=== PATIENT | female | born 1975 | race Caucasian/White ===

== ENCOUNTER 2018-04-03 15:36 | Outpatient (CLI) | payer BC, SELFPAY ==
[2018-04-03 16:35] LABS: Cholesterol 244 mg/dL (50-200); Glucose 80 mg/dL (70-100); HDL Cholesterol 54 mg/dL (40-60); LDL CHOLESTEROL 157 mg/dL (<100); Triglyceride 139 mg/dL (30-150)
[2018-04-03 19:45] LABS: Hemoglobin A1C 5.2 % (4.5-6.2)
== END 2018-04-03 15:56 ==
PROVIDERS: Visit Provider Obstetrics & Gynecology Gynecology
DX: Z00.00 Encounter for general adult medical examination without abnormal findings (principal); Z13.220 Encounter for screening for lipoid disorders; Z13.1 Encounter for screening for diabetes mellitus
CPT/HCPCS: 36415; 80061; 82947; 83721; 83036

== ENCOUNTER 2018-10-10 09:59 | Day surgery (SDC) | payer BC, SELFPAY ==
[2018-10-10 10:24] VITALS: BP 143/85; PULSE 81; RESP 16; TEMP 36; O2SAT 98
[2018-10-10] MEDS: Lactated Ringers 1,000 ML 80 ML IV ×2 (10:52→12:58)
--- NOTE | 2018-10-10 13:04 | W.PM.DSUDISC ---
Discharge Plan Disposition Patient Disposition: HOME Condition: Good Discharge Details Reason For Visit: SCREENING Attending Provider: Pat Cardoza Home Meds and New Rx's Prescriptions: Continued lorazepam 0.5 mg tablet 0.5 mg PO BID-TID PRN (Reason: anxiety) Qty: 10 RF: 0 sertraline 50 mg tablet 50 mg PO DAILY Qty: 90 RF: 4 sertraline 100 mg tablet 100 mg PO DAILY Qty: 90 RF: 4 Discontinued polyethylene glycol 3350 17 gram/dose powder 238 g PO ONCE Qty: 238 RF: 0 bisacodyl [Dulcolax (bisacodyl)] 5 mg tablet,delayed release (DR/EC) 5 mg PO ONCE Qty: 4 RF: 0 Discharge Instructions Additional Instructions: Findings:Normal repeat in 5 yrs time Follow up: as needed Please call if you develop: fevers >101.5 Nausea or Vomiting Abdominal pain that is not transient DAY SURGERY UNIT POST COLONOSCOPY INSTRUCTIONS 1. Because there will be medication in your system for the next 24 hours, you may feel a little sleepy. Your coordination will be affected. Therefore: a. Do not drive or operate dangerous equipment for 24 hours. b. Do not drink alcohol beverages for 24 hours (not even beer). c. Plan to go home and rest for the day. 2. Generally there are no restrictions on your activity after a day or so has gone by, but you may feel a bit fatigued for a few days. 3 After you arrive home you may have a light meal and return to a normal diet as you can tolerate it without feeling sick to your stomach. 4. After surgery, you may feel pain or discomfort. This should be only transient, but if it persists please contact your doctor. 5. If there are any questions regarding the findings of your procedure, please feel free to contact your doctor. 6. If you are unable to contact your doctor with a problem, contact the hospital at [phone]. 7. Continue all your regular medications unless directed otherwise. I understand the above instructions and have no questions. Signature of Patient or Responsible Adult Escort Date/Time Name of Responsible Adult Escort Signature of Nurse Date/Time Activity:: no strenuous acitivty x 24 Diet:: sm lt meals x 24 hrs Discharge Orders Discharge Orders: Discharge Order (Routine); Ordered 10/10/18 Ordered By: Pat Cardoza DS: Diagnosis Discharge Diagnosis (1) Family history of colon cancer in mother: Status: Chronic
--- NOTE | 2018-10-10 13:06 | W.COLOREPORT ---
Date of service: 10/10/18 Time of Service: 13:06 Colonoscopy Report Date of procedure: 10/10/18 Pre-op diagnosis general: CRC 1 degree relative Post-op diagnosis procedure note: same Procedure: CE Surgeon: Pat Cardoza Anesthesia proc note operative: GETA Estimated blood loss (mL): 0 Pathology: none sent Complications: None Disposition: same day Prep: Miralax/Dulcolax Retraction Time: 10 mins Procedure Description: Informed consent was obtained, explaining the risks and benefits of the procedure, including but not limited to bleeding, infection, perforation, aspiration, complications from the anesthesia. DESCRIPTION OF PROCEDURE: The patient was brought to the endoscopy suite and placed in left lateral decubitus position. Anesthesia was administered per the Department of Anesthesia, with constant monitoring of all vital signs. Digital rectal exam was performed prior to beginning the procedure and revealed no anal or rectal pathology. The previously lubricated Olympus was inserted in the rectum and insufflation was begun. The scope was passed up through the recto-sigmoid valves, through the sigmoid and transverse, down the ascending and the cecum was achieved at 90 cm. Good prep was noted. The scope was then withdrawn. There were no polyps,AVM,s or diverticula noted. The patient tolerated the procedure without complicated and transferred to the recovery room in stable condition. Colonoscopy should be repeated in 5 years time.
[2018-10-10 13:38] VITALS: BP 137/77; PULSE 77; RESP 16; TEMP 37.7; O2SAT 98
== END 2018-10-10 13:40 | disposition home or self-care (01) ==
PROVIDERS: Visit Provider Surgery
PROC: 0DJD8ZZ Inspection of Lower Intestinal Tract, Via Natural or Artificial Opening Endoscopic (ICD-10-PCS; CPT 45378; principal; 2018-10-10 11:15)
DX: Z12.11 Encounter for screening for malignant neoplasm of colon (principal); Z80.0 Family history of malignant neoplasm of digestive organs
CPT/HCPCS: 45378

== ENCOUNTER 2019-08-14 09:03 | Outpatient (REF) | payer BC, SELFPAY ==
--- NOTE | 2019-08-14 08:30 | PAPFT_PTH ---
PATIENT: Ilda Ayers LOC: [facility] U#:[id number] AGE/SX: 44/F ROOM: RE08/14/[address]: BRYAN Newton : 1975 BED: DIS: 08/14/2019 SPEC #: [id number] RECD: 08/14/19 12:48 STATUS: G[facility]ERT REQ #: [id number] YESENIA: 08/14/19 08:[address]: Monica Bowie DEPT: [facility] Cytology RECD BY: Claudia Durant ENTERED: 08/14/19 12:48 SP TYPE: PAPFT CRUZITO DR: Unknown,Unknown Tissues: 1 - CX/ENDOCX FOR PAP SMEARS Procedures: PAP THIN PREP/UVM Screening HPV DNA PROBE Comments: [id number]
== END 2019-08-14 09:23 ==
LOC: LBN 09:03
PROVIDERS: Visit Provider Nurse Practitioner Family
DX: Z12.4 Encounter for screening for malignant neoplasm of cervix (principal); Z11.51 Encounter for screening for human papillomavirus (HPV)
CPT/HCPCS: 88142; 87624

== ENCOUNTER 2021-01-31 04:19 | Outpatient (CLI) | payer BC, SELFPAY ==
[2021-01-31 08:48] LABS: Hemoglobin A1C 5.4 % (<5.7)
[2021-01-31 09:46] LABS: ALT 28 U/L (14-59); AST 16 U/L (15-37); Albumin 3.6 g/dL (3.4-5.0); Alkaline Phosphatase 112 U/L (46-116); Anion Gap 7.6 mmol/L (3-11); BUN 15 mg/dL (7-18); Bilirubin, Total 0.2 mg/dL (0.2-1.0); CO2 27.4 mmol/L (21.0-32.0); CREATININE 0.8 mg/dL (0.55-1.02); Calcium 8.6 mg/dL (8.5-10.1); Calculated LDL 130 mg/dL (<100); Chloride 105 mmol/L (98-107); Cholesterol 206 mg/dL (<200); Glucose 98 mg/dL (74-106); HDL Cholesterol 59 mg/dL (40-60); Potassium 4.5 mmol/L (3.5-5.1); Sodium 140 mmol/L (136-145); Triglyceride 85 mg/dL (<150)
== END 2021-01-31 04:20 | disposition home or self-care (01) ==
LOC: LBO 04:20
PROVIDERS: Visit Provider Obstetrics & Gynecology Gynecology
DX: E78.00 Pure hypercholesterolemia, unspecified (principal); Z68.31 Body mass index [BMI] 31.0-31.9, adult
CPT/HCPCS: 36415; 80053; 80061; 83036

== ENCOUNTER → 2021-04-22 00:39 | Outpatient (CLI) | payer BC, SELFPAY ==
--- NOTE | 2021-04-22 12:30 | DI.MAMMO_ITS ---
Exam(s) MAMMO SCREENING EXAM: MAMMO SCREENING CLINICAL HISTORY: screening TECHNIQUE: Mammograms were interpreted according to the usual protocol including computer analysis w [employer] CAD system, tomosynthesis and C-view imaging. COMPARISON: FINDINGS: The breasts are of moderate density with fairly symmetrical distribution of fibroglandular tissue. N o dominant mass or clumped microcalcification is identified in either breast. No prior studies avail able for comparison. On the CC view of the right breast, there is a vaguely nodular radiodensity projected at the extreme posterior aspect of the breast laterally, additional CC view exaggerated to the lateral portion of th e breast is requested. Additionally there is an area of asymmetric density or nodularity projected in the superior central p ortion right breast on MLO view. Additional evaluation with MLO spot compression view recommended. No other significant findings. IMPRESSION: Additional mammographic views of the right breast are requested as described above. Breast ultrasoun d may be indicated as well depending on the results of the additional mammographic views. BI-RADS Category 0 - Assessment Incomplete: Need additional imaging evaluation Breast Density - Category B - Scattered areas of fibroglandular density
== END ==
PROVIDERS: Visit Provider Obstetrics & Gynecology Gynecology
DX: Z12.31 Encounter for screening mammogram for malignant neoplasm of breast (principal); R92.8 Other abnormal and inconclusive findings on diagnostic imaging of breast
CPT/HCPCS: 77063; 77067

== ENCOUNTER 2021-04-25 09:58 | Outpatient (CLI) | payer BC, SELFPAY ==
--- NOTE | 2021-04-25 | DI.US_ITS ---
Exam(s) MG MAMMO SCREEN CALL BACK UNI US BREAST RT COMPLETE EXAM: MG MAMMO SCREEN CALL BACK UNI -RIGHT AND COMPLETE RIGHT BREAST ULTRASOUND CLINICAL HISTORY: F/U MAMMO, CC SHOWS NODULAR RADIODENSITY,MLO SHOWS ASYMETRIC DENSITY. TECHNIQUE: Unilateral spot mammographic images obtained with 3D tomosynthesisand utilizing computer aided detection (CAD). DIFFICULT VIEWS OBTAINED were spot compression MLO, exaggerated CC, and straig ht lateral view.. Complete right breast Ultrasound was also performed, including all 4 quadrants, the retroareolar makrel on, and the ipsilateral axilla. COMPARISON: Prior mammograms were reviewed. This additional imaging was performed due to findings described on the recent baseline screening mammogram of 04/22/2021. FINDINGS: Additional mammographic views performed todayrenders the area posteriorly less concerning. The more anterior area is equivocal. Therefore proceeded with ultrasound. Ultrasound performed today reveals no evidence of solid or significant cystic lesions in all 4 quadra nts nor in the retroareolar region. Scanning of the right axilla reveals no significant adenopathy. IMPRESSION: 1. No mammographic evidence of malignancy in the right breast. Negative complete right breast ultras ound Appropriate follow-up is repeat right breast MAMMOGRAM in 6 months, with earlier imaging if a self d etected breast change is noted. The patient was informed of these findings and recommendations prior to leaving the department today. BI-RADS Category 3 - 6 month - Probably Benign Finding: Recommend follow-up mammography in 6 months Breast Density - Category B - Scattered areas of fibroglandular density Breast density Category C or D implies that the patient has dense breast tissue. Dense breast tissue can make it harder to find cancer on a mammogram. Dense breast tissue is also associated with an incr eased risk of breast cancer. This information about the result of the mammogram report was provided to the patient to raise their awareness. Use this report when you speak with the patient about their risks for breast cancer, which includes their family history. At that time, you may recommend additional screening tests (Ultrasoun d or MRI) as these tests may add significant information. A negative radiographic report should not delay biopsy if a dominant or clinically suspicious mass is present. Up to ten percent of cancers are not identified on mammography. A negative report may reinforce clinical impression. Adenosis and dense breasts may obscure an underlying neoplasm. False positive reports average 6 to 10%. Patient will receive a letter notifying them of these results.
== END 2021-04-25 10:18 ==
LOC: DI 09:58
PROVIDERS: Visit Provider Obstetrics & Gynecology Gynecology
DX: Z12.31 Encounter for screening mammogram for malignant neoplasm of breast (principal); R92.8 Other abnormal and inconclusive findings on diagnostic imaging of breast; N64.59 Other signs and symptoms in breast
CPT/HCPCS: 76642; 77063; 77067

== ENCOUNTER 2021-10-27 03:19 | Outpatient (CLI) | payer BC, SELFPAY ==
--- NOTE | 2021-10-27 07:45 | DI.MAMMO_ITS ---
Exam(s) MG MAMMO DIAGNOSTIC UNI EXAM: MG MAMMO DIAGNOSTIC UNI CLINICAL HISTORY: 3 mo f/u, f/u inconclusive mammo, r92.2 TECHNIQUE: Right cc and MLO mammogram images were performed according to the usual protocol includ ing computer analysis with CAD system, tomosynthesis and C-view imaging. COMPARISON: MG MG MAMMO SCREENING from 04/22/2021 MG MG MAMMO SCREEN CALL BACK UNI from 04/25/2021 US US BREAST RT COMPLETE from 04/25/2021 FINDINGS: The right breast is composed of scattered fibroglandular densities, Breast Density category B. No suspicious masses or suspicious microcalcifications are seen. The previously questioned areas o f asymmetric density in the superior and lateral posterior aspects of the right breast are less promi nent. No new findings are seen. No skin thickening or abnormal axillary lymph nodes are seen. IMPRESSION: BI-RADS Category 1, Negative mammogram Resume screening mammography recommended. Breast Density - Category B, scattered fibroglandular densities. A negative radiographic report should not delay biopsy if a dominant or clinically suspicious mass is present. Up to ten percent of cancers are not identified on mammography. A negative report may reinforce clinical impression. Adenosis and dense breasts may obscure an underlying neoplasm. False positive reports average 6 to 10%. Patient will receive a letter notifying them of these results.
== END 2021-10-27 03:39 ==
LOC: DI 03:20
PROVIDERS: Visit Provider Obstetrics & Gynecology Gynecology
DX: R92.2 Inconclusive mammogram (principal)
CPT/HCPCS: 77061; 77065; G0279

== ENCOUNTER 2022-03-02 02:25 | Outpatient (CLI) | payer BC, SELFPAY ==
[2022-03-02 10:05] LABS: ALT 27 U/L (14-59); AST 21 U/L (15-37); Alkaline Phosphatase 99 U/L (46-116); Anion Gap 7.8 mmol/L (3-11); BUN 14 mg/dL (7-18); Bilirubin, Total 0.3 mg/dL (0.2-1.0); CO2 29.2 mmol/L (21.0-32.0); CREATININE 0.9 mg/dL (0.55-1.02); Calcium 9.3 mg/dL (8.5-10.1); Chloride 103 mmol/L (98-107); Estimated GFR 79.85 (mL/min/1.73m2); Glucose 94 mg/dL (74-106); Potassium 4.3 mmol/L (3.5-5.1); Sodium 140 mmol/L (136-145); Total Protein 7.7 g/dL (6.4-8.2)
[2022-03-02 10:06] LABS: Cholesterol 220 mg/dL (<200); HDL Cholesterol 70 mg/dL (40-60); LDL CHOLESTEROL 129 mg/dL (<100)
== END 2022-03-02 02:26 | disposition home or self-care (01) ==
LOC: LBO 02:25
PROVIDERS: Visit Provider Obstetrics & Gynecology
DX: Z00.00 Encounter for general adult medical examination without abnormal findings (principal); E78.5 Hyperlipidemia, unspecified
CPT/HCPCS: 36415; 80053; 83721; 82465; 83718

== ENCOUNTER 2023-07-23 11:02 | Outpatient (CLI) | payer BC, SELFPAY ==
[2023-07-23 12:20] LABS: Abs Immature Grans 0.01 10^3/uL (0.0-0.06); Absolute Basophil Count 0.04 10^3/uL (0.0-0.2); Absolute Eosinophil Count 0.12 10^3/uL (0.0-0.7); Absolute Lymphocyte Count 2.45 10^3/uL (1.2-3.4); Absolute Monocyte Count 0.67 10^3/uL (0.1-0.8); Basophils % 0.7 %; HCT 40.4 % (36.0-46.0); Immature Grans % 0.2 %; Lymphocytes % 41.6 %; MCH 29.1 pg (27.0-33.0); MCHC 32.2 % (32.0-36.0); MCV 90 fL (80-95); MPV 10.6 fL (8.0-11.0); Monocytes % 11.4 %; Neutrophils % 44.1 %; Platelet Count 280 10^3/uL (130-400); RBC 4.47 10^6/uL (3.93-5.22); RDW 12.3 % (11.7-14.6); RDW-SD 40.2 fL; WBC 5.89 10^3/uL (4.4-10.8)
== END 2023-07-23 11:03 | disposition home or self-care (01) ==
LOC: LOS 11:03
PROVIDERS: Referring Provider Family Medicine; Visit Provider Family Medicine
DX: R53.83 Other fatigue (principal)
CPT/HCPCS: 36415; 85025

== ENCOUNTER 2023-07-23 11:05 | Outpatient (REF) | payer BC, SELFPAY ==
[2023-07-23 14:08] LABS: TSH (W/Ref FT4) 1.51 uIU/mL (0.36-3.74)
== END 2023-07-23 11:06 | disposition home or self-care (01) ==
LOC: LBN 11:05
PROVIDERS: Visit Provider Family Medicine
DX: R53.83 Other fatigue (principal)
CPT/HCPCS: 84443

== ENCOUNTER 2023-07-26 16:03 | Outpatient (REF) | payer BC, SELFPAY ==
--- NOTE | 2023-07-26 16:00 | PAPFT_PTH ---
PATIENT: Ilda Ayers LOC: [facility] U#:[id number] AGE/SX: 48/F ROOM: RE07/26/[address]: Mariela Mast DO : 1975 BED: DIS: 07/26/2023 SPEC #: [id number] RECD: 07/26/23 17:44 STATUS: G[facility]BERT REQ #: [id number] YESENIA: 07/26/23 16:[address]: Mariela Mast DEPT: [facility] Cytology RECD BY: Claudia Durant ENTERED: 07/26/23 17:44 SP TYPE: PAPFT OTHR DR: Unknown,Unknown Tissues: 1 - CX/ENDOCX FOR PAP SMEARS Procedures: PAP THIN PREP/UVM Screening HPV DNA PROBE Comments: [id number] HPV 16 & 18/45)
== END 2023-07-26 16:04 | disposition home or self-care (01) ==
LOC: LBN 16:03
PROVIDERS: Visit Provider Obstetrics & Gynecology
DX: Z12.4 Encounter for screening for malignant neoplasm of cervix (principal)
CPT/HCPCS: 88142; 87624

== ENCOUNTER → 2023-07-30 02:07 | Outpatient (CLI) | payer BC, SELFPAY ==
--- NOTE | 2023-07-30 14:00 | DI.MAMMO_ITS ---
Exam(s) MAMMO SCREENING EXAM: MAMMO SCREENING CLINICAL HISTORY: screening TECHNIQUE: Bilateral full field digital CC and MLO mammographic images were obtained with 3D tomosyn thesis and utilizing computer aided detection (CAD). COMPARISON: Available for comparison. FINDINGS: Masses/Architectural Distortion: None seen. Microcalcifications: No suspicious pleomorphic-type are seen. Skin Thickening/Nipple Retraction: None. IMPRESSION: 1. No significant interval change with no specific features of malignancy noted. 2. Unless there is more urgent need, screening mammography is recommended, as per [place] [employer] guidelines. BI-RADS Category 1 - Negative Breast Density - Category B - Scattered areas of fibroglandular density Breast density category C or D implies that the patient has dense breast tissue. Dense breast tissue is very common and is not abnormal but dense breast tissue can make it harder to find cancer on a ma mmogram. Also, dense breast tissue may increase their breast cancer risk. This information about the result of the mammogram report was provided to the patient to raise their awareness. Use this report when you speak with the patient about their risks for breast cancer, which includes their family hist ory. At that time, you may recommend for more screening tests (Ultrasound or MRI) as they might be us eful based on their risk. A negative radiographic report should not delay biopsy if a dominant or clinically suspicious mass is present. Up to ten percent of cancers are not identified on mammography. A negative report may reinforce clinical impression. Adenosis and dense breasts may obscure an underlying neoplasm. False positive reports average 6 to 10%. Patient will receive a letter notifying them of these results.
== END ==
PROVIDERS: Visit Provider Obstetrics & Gynecology
DX: Z12.31 Encounter for screening mammogram for malignant neoplasm of breast (principal)
CPT/HCPCS: 77063; 77067

== ENCOUNTER 2023-09-06 20:18 | Emergency (ER) | payer BC, SELFPAY ==
[2023-09-06 20:20] VITALS: BP 147/99; PULSE 72; RESP 18; TEMP 36.4; O2SAT 99
--- NOTE | 2023-09-06 21:00 | RT.EKG_ITS ---
APPROVED REPORT Exam: Resting ECG Reason for Exam: short of breath Patient Location: E HR:65 bpm ECG Measurements Heart Rate 65 AXIS SD 180 P 72 QRSd 95 QRS -17 QT 423 T 62 QTc 441 Conclusion Sinus rhythm...normal P axis, V-rate 60- 99 Probable left atrial enlargement...P >50mS, <-0.10mV V1 Low voltage, precordial leads...precordial leads <1.0mV Anteroseptal infarct, old...Q >40mS, V1-V2
--- NOTE | 2023-09-06 21:20 | ED.GENADUL_ITS ---
Discharge Plan Disposition Patient Disposition: Against Medical Advice Discharge Details Chief Complaint: SOB Clinical Impression: Shortness of breath Primary Care Provider: Unknown,Unknown ED Provider: Mayco Rasheed Home Meds and New Rx's Prescriptions: No Action (DME) Aerochamber MV Spacer See Rx Instructions .Route Qty: 1 0RF Rx Instructions: As directed up4 Probiotics Adult 15 billion cell capsule PO DAILY Patient Comments: 02/14/22- pt reports takes Plexus brand probiotics. bio cleanse capsule PO DAILY Patient Comments: 02/14/22- Pt reports taking plexus biocleanse capsule daily. sertraline 50 mg tablet 50 mg PO DAILY Qty: 90 0RF Rx Instructions: take one 100mg tablet along with one 50mg tablet daily sertraline 100 mg tablet 100 mg PO DAILY Qty: 90 0RF Rx Instructions: take one 100mg tablet and one 50mg Sertraline tablet daily HPI General Date/Time Provider Initiated Documentation: 09/06/23 20:36 . HPI Narrative: 48-year-old female presents with shortness of breath. She says that she is feeling very anxious. She says she has had multiple life stressors recently. Not endorsing SI or HI. She says she tested positive for COVID on Sunday and has felt short of breath since. Denying any chest pain. She says she has had panic attacks in the past and says that this feels similar. She denies any other complaints presently. Related Data Home Medications ?Medication ?Instructions ?Recorded ?Confirmed Lactobacillus cap PO DAILY 02/14/22 07/26/23 acidophil,plantar-Bifido no.7 15 billion cell capsule (up4 Probiotics Adult) bio cleanse PO DAILY 02/14/22 07/26/23 inhalational spacing device #1 ea 06/18/23 07/26/23 (Aerochamber MV spacer) sertraline 100 mg tablet 100 mg PO DAILY #90 tab-caps 07/26/23 07/26/23 sertraline 50 mg tablet 50 mg PO DAILY #90 tab-caps 07/26/23 07/26/23 Previous Rx's ?Medication ?Instructions ?Recorded inhalational spacing device #1 ea 06/18/23 (Aerochamber MV spacer) sertraline 100 mg tablet 100 mg PO DAILY #90 tab-caps 07/26/23 sertraline 50 mg tablet 50 mg PO DAILY #90 tab-caps 07/26/23 Allergies Allergy/AdvReac Type Severity Reaction Status Date / Time Sulfa (Sulfonamide AdvReac Nausea Verified 09/06/23 20:31 Antibiotics) General Stated Complaint: SOB RAHEEL: 3 Review of Systems Constitutional Constitutional: Denies chills, Denies fever(s) and Denies headache(s) Eyes Eyes: Denies change in vision ENT Ears, Nose, Mouth, and Throat: Denies headache(s) and Denies odynophagia Cardiovascular Cardiovascular: Denies chest pain and Reports dyspnea Respiratory Respiratory: Reports dyspnea Gastrointestinal Gastrointestinal: Denies abdominal pain, Denies diarrhea, Denies nausea, Denies odynophagia and Denies vomiting Genitourinary Genitourinary: Denies dysuria Musculoskeletal Musculoskeletal: Denies myalgias Integumentary/Breasts Skin/Breast: Denies changing lesions Neurologic Neurologic: Denies headache(s) Psychiatric Psychiatric: Reports anxiety Endocrine Endocrine: Denies heat intolerance Hematologic/Lymphatic Hematologic/Lymphatic: Denies lymphadenopathy Exam Const General: cooperative Nutritional Appearance: average body habitus Orientation: alert, awake and oriented x3 HENMT Head: normal to inspection Ears: external ears normal Mouth: moist mucous membranes Eyes Pupils: PERRL EOM: EOM intact bilaterally and No nystagmus Neck Neck: full ROM and no tracheal deviation Chest Chest: normal inspection of the chest Resp Auscultation: clear to auscultation bilaterally Cardio Rate: regular rate Rhythm: regular rhythm GI Inspection: normal to inspection Palpation: soft, no guarding, not rigid and nontender Back/Spine/Pelvis Back: No no CVA tenderness Thoracic/Lumbar Spine: thoracic and lumbar spine normal to inspection Skin General skin exam: no rashes or lesions noted Neuro General: patient alert, patient awake and patient oriented x3 Cranial Nerves: CN's II-XI intact bilaterally, PERRL and no nystagmus Cognition: normal cognition Motor: muscle tone normal throughout and strength 5/5 throughout Sensory Exam: no sensory deficits noted Extrem General: normal to inspection Course Vital Signs Vital signs: Vital Signs Temperature 36.4 C L 09/06/23 20:20 Pulse 72 09/06/23 20:20 Respiratory Rate 18 09/06/23 20:20 Blood Pressure 147/99 H 09/06/23 20:20 Pulse Oximetry 99 09/06/23 20:20 Temperature 36.4 C L 09/06/23 20:20 Temperature Source Skin 09/06/23 20:20 Pulse 72 09/06/23 20:20 Respiratory Rate 18 09/06/23 20:20 Blood Pressure 147/99 H 09/06/23 20:20 Blood Pressure Position Sitting 09/06/23 20:20 Pulse Oximetry 99 09/06/23 20:20 Oxygen Delivery Method Room Air 09/06/23 20:20 Oxygen Flow Rate 0 09/06/23 20:20 Medical Decision Making 48-year-old female presents with shortness of breath and reported anxiety. She had a positive home COVID test on Sunday which certainly could be contributing. Obtained EKG that was showing sinus rhythm with no ischemic changes. I recommended the patient that we perform a chest x-ray. She was requesting something for anxiety and I offered this to her. Patient became agitated with me when I originally did not say that we were doing blood work. I did not think that this was initially necessary but I told her I would be more than happy to order some blood workup for her symptoms as well. She told me that I was simply trying to dismiss her. I told her that I wanted her to stay for the chest x-ray and labs. She was agitated because she said that she did not think she needed a chest x-ray. I tried to explain that COVID can have complications that could cause findings on chest x-ray such as diffuse infiltrates or pneumothorax that could be explaining her symptoms. She did not want to stay. She certainly had a capacity to make her own decisions. I informed her that if she left she would be leaving against my advice and that I strongly recommended she stay for chest x-ray and labs. She refused. She left the emergency department AGAINST MEDICAL ADVICE. Refused to stay for any paperwork. Quality:SDOH Health Related Social Needs: No Data to Display PFSH All Active Problems (Updated 09/06/23 @ 23:35 by Mayco Rasheed MD) Shortness of breath (Acute) Grief reaction (Chronic) Fatigue (Acute) Costochondritis (Acute) Elevated LDL cholesterol level (Acute) 03/2018-LDL: 154 HDL: 54. Recommended dietary and lifestyle modifications to the patient and repeat cholesterol in 6 months. Medical History BMI 31.0-31.9,adult 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 Family history of colon cancer in mother 2013 Mother 55yo at time of dx. T3N0M0 Stage 2. s/p sigmoid colectomy. No further treatment. Incidental finding at time of PET Scan surveillence for Hogkins Lymphoma. Pt's sister also dx'd with stage 4 colon ca. Depression occured PP. Pt began Rx when son was 3yo. Contraception 's vasectomy. Family History Mother Cancer of sigmoid colon Dx by PET scan during routine f/u of Hogkins lymphoma. S/P sigmoid colectomy 2013. T3N0M0 Stage 2. No further treatment required. Personal history of malignant neoplasm Father Myocardial infarction Sister Cancer Stage 4 colon CA diagnosed at time of her initial colonoscopy. Brother Seizure after head injury brain bleed after fall? Unclear etiology Social History Smoking/Tobacco Use Status: Never Smoking risk assessment performed?: Yes Alcohol Intake: current Alcohol Intake frequency: other Details: once a month Drug use: Never Substance use type: does not use Household members: spouse Number of Children: 1 current occupation: [employer] Sexually active: Yes What is your relationship status?: Panel score (0-1 are the most socially isolated patients): 1 Seatbelt use: always Do you feel safe at home: Yes Do you feel safe in your relationship?: Yes Additional Social history: [facility] History History 1 Para 1 Hx # Term Pregnancies 1 Multiple births Hx # Pregnancies Ectopic pregnancies AB induced Hx Number of Living Children 1 AB spontaneous
== END 2023-09-06 21:18 | disposition left against medical advice (07) ==
PROVIDERS: Emergency Provider Student in an Organized Health Care Education/Training Program
DX: R06.02 Shortness of breath (principal); Z53.29 Procedure and treatment not carried out because of patient's decision for other reasons
CPT/HCPCS: 93005; 99283; 93010; 99282

== ENCOUNTER 2023-12-28 09:09 | Day surgery (SDC) | payer BC, SELFPAY ==
--- NOTE | 2023-12-27 20:43 | W.COLOREPORT ---
Date of service: 12/28/23 Time of Service: 12:56 Colonoscopy Report Date of procedure: 12/28/23 Pre-op diagnosis general: Fam HX of CRC Post-op diagnosis procedure note: other (Polyp) Surgeon: Pat Cardoza Anesthesia Type: General:No Airway Estimated blood loss (mL): 2 Pathology: other Complications: None Disposition: same day Prep: Miralax/Dulcolax Retraction Time: 13 Procedure Description: After informed consent was obtained, explaining risks of the procedure, including but not limits to: bleeding, infections, complications of anesthesia, perforations (which may require antibiotics and /or surgery and stay in the hospital), and abdominal pain/cramping. The patient was taken to the procedure room and placed in a left decubitous position. Monitors were applied and a time out was done. The patients name, date of , procedure, allergies to medications and metal in their body was reviewed. The patient was then sedated. Once sedated and comfortable a rectal exam was done. External exam was normal. Internal exam revealed a normal sphincter tone and no palpable masses. The previously lubricated Olympus scope was then introduced (see RN notes for scope number) and retrofelexed. Grade 2 internal hemorrhoids x 2 columns, old hemorrhoidal tags, and may be an old healed fissure. Were identified. The scope was then advanced to the cecum without difficulty. The TI and appendiceal orifice were identified. The scope was then slowly retracted over 13 minutes back into the rectum. Polyps: A flat, .5cm polyp was found at 90cm. This was removed with a cold biting forceps. A flat, .75cm polyp was found at 80cm This was removed w/ ac old biting forcept. She also had two flat, .5cm polyp was found at 60 &30cm. These are removed w/ a cold biting forceps. All of the specimen was retrieved. This will be sent to pathology. There is no bleeding noted from the polypectomy site. Diverticula: None The mucosa is pink and healthy w/ a normal vascular pattern. The scope was removed, and the patient was woken up and taken back to Same day surgery in stable condition. The patient tolerated the procedure well and there were no immediate complications. Follow up: The patient should follow up in 3-5 years, path pending, unless they develop changes in bowel habits or other new gastrointestinal complaints. [place] Bowel Prep [place] Bowel Prep Right Colon: 3 Left Colon: 3 Transverse Colon: 3 Total Score: 9
--- NOTE | 2023-12-27 20:44 | PDOC.DSDIS_ITS ---
Discharge Plan Disposition Patient Disposition: Home Discharge Details Reason For Visit: colon cancer screening Attending Provider: Pat Cardoza Primary Care Provider: Unknown,Unknown Home Meds and New Rx's Prescriptions: Continued (DME) Aerochamber MV Spacer See Rx Instructions .Route Qty: 1 0RF Rx Instructions: As directed up4 Probiotics Adult 15 billion cell capsule 1 cap PO DAILY Patient Comments: 02/14/22- pt reports takes Plexus brand probiotics. bio cleanse capsule PO DAILY Patient Comments: 02/14/22- Pt reports taking plexus biocleanse capsule daily. sertraline 50 mg tablet 50 mg PO DAILY Qty: 90 0RF Rx Instructions: take one 100mg tablet along with one 50mg tablet daily sertraline 100 mg tablet 100 mg PO DAILY Qty: 90 0RF Rx Instructions: take one 100mg tablet and one 50mg Sertraline tablet daily valacyclovir 500 mg tablet 500 mg PO DAILY PRN Discontinued bisacodyl [Dulcolax (bisacodyl)] 5 mg tablet,delayed release (DR/EC) 5 mg PO ONCE Qty: 4 0RF Rx Instructions: Take per colonoscopy instructions provided by ordering providers office polyethylene glycol 3350 17 gram/dose powder 17 g PO ONCE Qty: 238 0RF Rx Instructions: Take per colonoscopy instructions provided by ordering providers office Discharge Instructions Additional Instructions: DSU Colonoscopy Post- Op Instructions Instructions for Everyone who is given Anesthesia: For your safety, please do the following for the next twenty-four (24) hours: *Do Not operate a motor vehicle (car, truck, motorcycle, etc.) *Do Not drink alcoholic beverages or use any recreational drugs for the first 24 hours or while taking pain medications. The medications in your body may have a reaction that can be dangerous. *Do Not make any important decisions or sign any important papers. Findings: X 4 colon polyps Follow up: My office will send you a letter with the results in 2 to 3 weeks time, most likely we will want to repeat your scope somewhere between 3 to 5 years. Of course, you should continue to have a yearly physical exam including a rectal exam. If you should ever notice any pain or difficulty having a bowel movement, blood in the stool, unexplained weight loss, or change in your bowel habits, please contact your health provider. 1. No lifting over 20 pounds or strenuous activity for the first 24 hours after your procedure. After 24 hours there are no restrictions on your activity but you may feel fatigued for a few days. 2. After you arrive home you may have a light meal and return to your normal diet as you can tolerate it without feeling sick to your stomach. 3. You may have a bloated, gaseous feeling in your belly (abdomen) after a colonoscopy. Passing gas and belching will help. Walking or lying down on your left side with your knees flexed may relieve the discomfort. Call the office at [phone] (Office) or [phone] (Hospital) right away if you notice any of the following: a.Vomiting of blood or ?coffee ground stools?. b.Rectal bleeding 1Tbsp, blood clots or continuous bleeding. c.Severe belly (abdominal) pain. d.A hard distended belly (abdomen) and an inability to pass gas. 4. Please don?t expect to have a normal BM (bowel movement) for 2-3 days after your procedure. 5. If there are questions regarding the findings of your procedure, please contact your doctor 6. If you are unable to contact your doctor with a problem, contact the hospital at [phone]. 7. Continue all your regular medications unless directed otherwise. I understand the above instructions and have no questions. Signature of Patient or Adult Escort Name of Responsible Adult Escort Signature of Nurse Date/Time Activity:: see above Diet:: see above Discharge Orders Discharge Orders: Discharge Order (Routine); Ordered 12/28/23 Ordered By: Pat Cardoza DS: Diagnosis Discharge Diagnosis (1) Family history of colon cancer in mother: (2) Colon polyp: Status: Acute
[2023-12-28 09:22] VITALS: BP 115/77; PULSE 78; RESP 16; TEMP 36; O2SAT 97
[2023-12-28] MEDS: Normal Saline Flush 10 ML SYR IV (09:36)
--- NOTE | 2023-12-28 11:02 | W.ANESPRE ---
General Info Date of Service Date Performed: 12/28/23 Height: 5 ft 2 in Weight: 75.5 kg Body Mass Index (BMI): 30.4 Surgical Procedure: Operation Date: 12/28/23 10:20 Proposed Procedure Side Surgeon roya Cardoza, DO Meds Allergies and Home Medications Allergies Allergy/AdvReac Type Severity Reaction Status Date / Time Sulfa (Sulfonamide AdvReac Nausea Verified 12/28/23 09:27 Antibiotics) Home Medication ?Medication ?Instructions ?Recorded Lactobacillus 1 cap PO DAILY 02/14/22 acidophil,plantar-Bifido no.7 15 billion cell capsule (up4 Probiotics Adult) bio cleanse PO DAILY 02/14/22 inhalational spacing device #1 ea 06/18/23 (Aerochamber MV spacer) sertraline 100 mg tablet 100 mg PO DAILY #90 tab-caps 07/26/23 sertraline 50 mg tablet 50 mg PO DAILY #90 tab-caps 07/26/23 valacyclovir 500 mg tablet 500 mg PO DAILY PRN 12/03/23 Current Visit Medications: Current Medications Generic Name Dose Route Start Last Admin Trade Name Freq PRN Reason Stop Dose Admin Hyoscyamine Sulfate 0.125 mg 12/28/23 05:59 Hyoscyamine 0.125 Mg Sl/Oral/Chew SL 01/27/24 05:58 DIRECTED PRN IV Miscellaneous Supplies 1 each 12/28/23 06:00 Iv Access IV 12/28/23 23:59 DIRECTED RICKY Ondansetron HCl 4 mg 12/28/23 05:59 Ondansetron 4 Mg/2 Ml Vial IVP 01/27/24 05:58 Q4H PRN PRN Nausea / Vomiting Sodium Chloride 0 ml 12/28/23 06:00 12/28/23 09:36 Normal Saline Flush 10 Ml Syr IV 12/28/23 23:59 10 ml PRN PRN Administration Sodium Chloride 0 ml 12/28/23 06:00 Normal Saline 10 Ml Vial IJ 12/28/23 23:59 DIRECTED PRN Sterile Water 0 ml 12/28/23 06:00 Water,Injection,Sterile 10 Ml Vial IJ 12/28/23 23:59 DIRECTED PRN PFSH Active Problems Active Problems: Problem Status Onset Code 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 Family history of colon cancer in mother 2013 Mother 55yo at time of dx. T3N0M0 Stage 2. s/p sigmoid colectomy. No further treatment. Incidental finding at time of PET Scan surveillence for [place] Lymphoma. Pt's sister also dx'd with stage 4 colon ca. Depression occured PP. Pt began Rx when son was 3yo. Contraception 's vasectomy. Tobacco Smoking/Tobacco Use Status: Never Passive smoking exposure: No Alcohol Alcohol Intake: current Alcohol intake frequency: a few times a month Alcohol type: beer Details: once a month Substance Use Substance use: Never Substance use type: does not use Prental History History 1 Para 1 Hx # Term Pregnancies 1 Multiple births Hx # Pregnancies Ectopic pregnancies AB induced Hx Number of Living Children 1 AB spontaneous Vital Signs and Lab Results Vital Signs Most Recent Vital Signs in EMR: Most Recent Vital Signs Temp Pulse Resp BP Pulse Ox 36 C L 78 16 115/77 97 12/28/23 09:22 12/28/23 09:22 12/28/23 09:22 12/28/23 09:22 12/28/23 09:22 Lab Results Blood Type / Crossmatch: No Data to Display Complete Blood Count: No Data to Display Complete Metabolic Panel: No Data to Display Liver Function Panel: No Data to Display Coagulation Panel: No Data to Display Cardiac Panel: No Data to Display Arterial Blood Gas: No Data to Display Venous Blood Gas: No Data to Display Pancreas Panel: No Data to Display Thyroid Panel: No Data to Display Infectious Disease: No Data to Display Blood Cultures: No Data to Display Toxicology Panel: No Data to Display Panel: No Data to Display Anesthesia Assessment and Plan Anesthesia History Personal History: No History of Anesthesia Complications Family History: No Family History of Anesthesia Complications Exercise Tolerance Exercise Tolerance: Metabolic Equivalents>4 Pertinent Negatives Pertinent Negatives: No Symptoms of GERD Cardiac & Pulmonary Exam Cardiac Exam: Normal S1/S2 Heart Sounds Pulmonary Exam: Clear Bilateral Breath Sounds Implantable Cardiac Device Does patient have a Pacemaker or an ICD?: No Airway Exam Known Difficult Airway: No Mallampati Class: 2 Mouth Opening: Normal (> 3cm) Thyromental Distance: Greater than 3 cm Neck Range of Motion: Full ROM Neck Circumference: Normal Teeth Condition: Normal Dentition ASA Classification ASA Score: ASA 2 Emergency Case?: No NPO Status NPO Status: NPO Clears >2 hours, Solids >8 hours Status Status: Not Relevant due to Medical History Anesthesia Plan Resuscitation Status: Full Code Anesthesia Technique: General Anesthesia Airway Planned: Natural Airway Monitors Used: Standard Monitors
[2023-12-28 11:04] VITALS: BMI 30.4
--- NOTE | 2023-12-28 12:38 | BOWEL_PTH ---
PATIENT: Ilda Ayers LOC: [facility] U#:[id number] AGE/SX: 48/F ROOM: RE12/28/[address]: Pat Cardoza : 1975 BED: DIS: 12/28/2023 SPEC #: [id number] RECD: 12/28/23 13:32 STATUS: GILBERT REQ #: [id number] YESENIA: 12/28/23 12:[address]: Pat Cardoza DEPT: Surgical Specimen RECD BY: Claudia Durant ENTERED: 12/28/23 13:33 SP TYPE: Bowel OTHR DR: Unknown,Unknown Tissues: 1 - BIOPSY BOWEL 2 - BIOPSY BOWEL 3 - BIOPSY BOWEL 4 - BIOPSY BOWEL Procedures: GROSS AND MICRO LEVEL 4 Comments: [id number]
[2023-12-28 12:58] VITALS: BP 109/74; PULSE 80; RESP 16; TEMP 36.2; O2SAT 94
--- NOTE | 2023-12-28 13:09 | W.ANESPOSTOP ---
Postoperative Evaluation Date, Time and Location Date Performed: 12/28/23 Time Performed: 13:09 Patient Location: Day Surgery Unit Vital Signs Most Recent Imported Vital Signs: Most Recent Vital Signs Temp Pulse Resp BP Pulse Ox 36 C L 78 16 115/77 97 12/28/23 09:22 12/28/23 09:22 12/28/23 09:22 12/28/23 09:22 12/28/23 09:22 Pain Score Most Recent Pain Score: Most Recent Pain Score Pain Level 0 12/28/23 09:22 Assessment Mental Status: Awake (Alert & Oriented to Patient Baseline) Airway and Respiratory Function: Patent airway with normal (patient baseline) respiratory exam Cardiovascular Function: Hemodynamically Stable Hydration Status: Adequately Hydrated Nausea & Vomiting: No Nausea or Vomiting Pain: Pt. Denies Any Pain Peripheral Nerve Block: Patient did not receive a nerve block
== END 2023-12-28 15:10 | disposition home or self-care (01) ==
LOC: SUR 09:09
PROVIDERS: Visit Provider Surgery
PROC: 0DJD8ZZ Inspection of Lower Intestinal Tract, Via Natural or Artificial Opening Endoscopic (ICD-10-PCS; CPT 45378; principal; 2023-12-28 10:15)
DX: Z80.0 Family history of malignant neoplasm of digestive organs (principal); D12.4 Benign neoplasm of descending colon; Z12.11 Encounter for screening for malignant neoplasm of colon; K64.1 Second degree hemorrhoids
CPT/HCPCS: 45380; 88305; J2003; J2704

== ENCOUNTER 2024-07-30 15:43 | Outpatient (REF) | payer BC, SELFPAY ==
--- NOTE | 2024-07-30 15:20 | PAPFT_PTH ---
PATIENT: Ilda Ayers LOC: [facility] U#:[id number] AGE/SX: 49/F ROOM: RE07/30/[address]: Mariela Mast DO : 1975 BED: DIS: 07/30/2024 SPEC #: [id number] RECD: 07/30/24 17:32 STATUS: GILBERT REQ #: [id number] YESENIA: 07/30/24 15:[address]: Mariela Mast DEPT: [facility] Cytology RECD BY: Claudia Durant ENTERED: 07/30/24 17:32 SP TYPE: PAPFT OTHR DR: Unknown,Unknown Tissues: 1 - CX/ENDOCX FOR PAP SMEARS Procedures: PAP THIN PREP/[facility] Screening HPV DNA PROBE Comments: [id number] (HPV 16 & 18/45)
== END 2024-07-30 15:44 | disposition home or self-care (01) ==
LOC: LBN 15:43
PROVIDERS: Visit Provider Obstetrics & Gynecology
DX: Z12.4 Encounter for screening for malignant neoplasm of cervix (principal)
CPT/HCPCS: 88142; 87624

== ENCOUNTER 2024-09-09 07:53 | Outpatient (CLI) | payer BC, SELFPAY ==
--- NOTE | 2024-09-09 17:00 | DI.MAMMO_ITS ---
Exam(s) MAMMO SCREENING EXAM: MAMMO SCREENING CLINICAL HISTORY: screening TECHNIQUE: Bilateral full field digital CC and MLO mammographic images were obtained with 3D tomosynthesis and utilizing computer aided detection (CAD). COMPARISON: Comparison is made with prior examinations. FINDINGS: Masses/Architectural Distortion: No suspicious masses or areas of architectural distortion are present. Asymmetric breast tissue in the upper right breast on the MLO view is unchanged compared to prior examinations. Microcalcifications: No suspicious pleomorphic-type are seen. Skin Thickening/Nipple Retraction: None. IMPRESSION: 1. No significant interval change with no specific features of malignancy noted. 2. Unless there is more urgent need, screening mammography is recommended, as per [place] [employer] guidelines. BI-RADS Category 1 - Negative Breast Density - Category B - There are scattered areas of fibroglandular density. Breast density Category C or D implies that the patient has dense breast tissue. Dense breast tissue can make it harder to find cancer on a mammogram. Dense breast tissue is also associated with an increased risk of breast cancer. This information about the result of the mammogram report was provided to the patient to raise their awareness. Use this report when you speak with the patient about their risks for breast cancer, which includes their family history. At that time, you may recommend additional screening tests (Ultrasound or MRI) as these tests may add significant information. A negative radiographic report should not delay biopsy if a dominant or clinically suspicious mass is present. Up to ten percent of cancers are not identified on mammography. A negative report may reinforce clinical impression. Adenosis and dense breasts may obscure an underlying neoplasm. False positive reports average 6 to 10%. Patient will receive a letter notifying them of these results.
== END 2024-09-09 08:13 ==
PROVIDERS: PCP Student in an Organized Health Care Education/Training Program; Visit Provider Obstetrics & Gynecology
DX: Z12.31 Encounter for screening mammogram for malignant neoplasm of breast (principal); R92.323 Mammographic fibroglandular density, bilateral breasts
CPT/HCPCS: 77063; 77067

== ENCOUNTER 2024-11-06 12:25 | Outpatient (REF) | payer BC, SELFPAY ==
[2024-11-06 14:45] LABS: ALT 32 U/L (14-59); AST 21 U/L (15-37); Albumin 4.0 g/dL (3.4-5.0); Alkaline Phosphatase 94 U/L (46-116); Anion Gap 8.5 mmol/L (3-11); BUN 17 mg/dL (7-18); Bilirubin, Total 0.3 mg/dL (0.2-1.0); CO2 29.5 mmol/L (21.0-32.0); Calcium 8.9 mg/dL (8.5-10.1); Calculated LDL 139 mg/dL (<100); Chloride 104 mmol/L (98-107); Cholesterol 223 mg/dL (<200); Estimated GFR 90.83 (mL/min/1.73m2); Glucose 92 mg/dL (74-106); HDL Cholesterol 60 mg/dL (>or=50); Potassium 4.2 mmol/L (3.5-5.1); Sodium 142 mmol/L (136-145); Total Protein 7.5 g/dL (6.4-8.2); Triglyceride 122 mg/dL (<150)
[2024-11-06 14:47] LABS: Abs Immature Grans 0.01 10^3/uL (0.0-0.06); HCT 40.8 % (36.0-46.0); HGB 13.5 g/dL (11.2-15.7); Immature Grans % 0.2 %; MCH 29.5 pg (27.0-33.0); MCHC 33.1 % (32.0-36.0); MCV 89 fL (80-95); MPV 10.9 fL (8.0-11.0); Platelet Count 285 10^3/uL (130-400); RBC 4.58 10^6/uL (3.93-5.22); RDW 12.1 % (11.7-14.6); RDW-SD 39.7 fL; WBC 6.48 10^3/uL (4.4-10.8)
== END 2024-11-06 12:26 | disposition home or self-care (01) ==
LOC: NCHCN 12:25
PROVIDERS: PCP Student in an Organized Health Care Education/Training Program; Visit Provider Student in an Organized Health Care Education/Training Program
DX: Z13.220 Encounter for screening for lipoid disorders (principal); F43.20 Adjustment disorder, unspecified
CPT/HCPCS: 80053; 80061; 85025